=== PATIENT | female | born 1985 | race Hispanic/Latino ===

== ENCOUNTER 2018-10-16 19:51 | Emergency (ER) | payer OTHER, SELFPAY ==
--- OUTSIDE RECORDS SUMMARY | 2018-10-16 19:53 | XMS REPORT ---
:1985 [facility] [address] [place] [address] [address] [place] [address] Care Team Providers Name Role Phone Unavailable Unavailable Unavailable Problems This patient has no known problems. Allergies, Adverse Reactions, Alerts This patient has no known allergies or adverse reactions. Medications This patient has no known medications.
[2018-10-16] MEDS ORDERED: NA CHLORIDE 0.9% 1,000 ML ONE (20:28)
[2018-10-16] MEDS ORDERED: MORPHINE 4 MG/ML SYR ONE (20:28)
[2018-10-16] MEDS ORDERED: ONDANSETRON 4 MG/2 ML VIAL ONE (20:28)
[2018-10-16 20:32] LABS: Absolute Lymphocytes (CBC) 1.3 K/uL (0.7-4.9); Absolute Monocytes 0.7 K/uL (0.1-1.3); Absolute Neutrophil 7.6 K/uL (1.8-8.0); Basophils % 0.7 % (0-1.3); Eosinophils % 1.2 % (0-4.4); Hematocrit 37.3 % (36.0-45.0); Lymphocytes % 13.3 % (15.3-44.8); MPV 10.7 fL (7.6-11.3); Monocytes % 7.6 % (3.3-12.3); RBC Red Blood Cell Count 4.23 M/uL (3.86-4.86)
[2018-10-16 20:46] LABS: Potassium 3.8 mmol/L (3.5-5.1)
[2018-10-16 21:05] LABS: Urine Blood NEGATIVE (NEG); Urine Glucose NEGATIVE (NEG); Urine Protein TRACE (NEG); Urine Specific Gravity >1.030 (1.005-1.030)
[2018-10-16 21:17] LABS: Urine Bacteria <20 /HPF (<20); Urine Culture Reflex Order REFLEXED; Urine Mucus LIGHT /HPF (NONE SEEN); Urine RBC NONE SEEN /HPF (NONE SEEN)
[2018-10-16] MEDS ORDERED: KETOROLAC 30 MG/ML INJ ONE (21:25)
--- NOTE | 2018-10-16 22:14 | RAD REPORT ---
EXAM DESCRIPTION: CT - Stone Protocol - 10/16/2018 9:56 pm CLINICAL HISTORY: Abdominal pain. Hematuria COMPARISON: None. TECHNIQUE: Computed axial tomography of the abdomen pelvis was obtained without oral or IV contrast. Lack of IV and oral contrast limits evaluation of solid organs, bowel, and vessels. Coronal reformat edmund images were obtained and reviewed. All CT scans are performed using dose optimization technique as appropriate and may include automated exposure control or mA/KV adjustment according to patient size. FINDINGS: A renal calculus is not seen. An ureteral calculus is not noted. A bladder calculus is not present. The liver, spleen, pancreas and adrenals appear grossly normal There is no evidence of diverticulitis. The appendix appears normal Tubal occlusion coils are in place. Small umbilical hernia. Moderate amount of stool is present within the colon IMPRESSION: Negative for a genitourinary calculus
--- NOTE | 2018-10-16 22:26 | EDPHYS ---
Physician Documentation [facility] Name: Janeth Hassan Age: 32 yrs Sex: Female : 1985 Arrival Date: 10/16/2018 Time: 19:54 Bed 14 Private MD: ED Physician Oh Jensen HPI: 10/16 21:00 This 32 yrs old Female presents to ER via Ambulatory with complaints of Back kb Pain, Vomiting. 21:00 The patient complains of pain in the left flank. The pain does not radiate. Onset: The kb symptoms/episode began/occurred 3 day(s) ago. Modifying factors: The symptoms are alleviated by nothing. the symptoms are aggravated by palpation/percussion. Associated signs and symptoms: Pertinent positives: dysuria, urinary frequency, hematuria, nausea, vomiting, Pertinent negatives: diarrhea, dizziness, fever, headache, pain radiating to the lower extremities. Severity of pain: At its worst the pain was moderate in the emergency department the pain is unchanged. The patient has not experienced similar symptoms in the past. The patient has been recently seen by a physician: the ER physician, out of Town. Pt has had left flank pain, hematuria, dysuria, frequency with small amounts for 3 days. Symptoms have gotten progressively worse so she went to [place] ER today. Urine was tested and pt was started on Bactrim for UTI. States she took the bactrim, went home and went to sleep. Woke up with flank pain, nausea and vomiting. Historical: - Allergies: 20:04 No Known Allergies; jd3 - Home Meds: 20:04 None [Active]; jd3 - PMHx: 20:04 None; jd3 - PSHx: 20:04 None; jd3 - Immunization history:: Adult Immunizations up to date. - Social history:: Smoking status: Patient/guardian denies using tobacco. - Ebola Screening: : Patient negative for fever greater than or equal to 101.5 degrees Fahrenheit, and additional compatible Ebola Virus Disease symptoms. ROS: 20:59 Constitutional: Negative for fever, chills, and weight loss, ENT: Negative for injury, kb pain, and discharge, Neck: Negative for injury, pain, and swelling, Cardiovascular: Negative for chest pain, palpitations, and edema, Respiratory: Negative for shortness of breath, cough, wheezing, and pleuritic chest pain, MS/Extremity: Negative for injury and deformity, Skin: Negative for injury, rash, and discoloration, Neuro: Negative for headache, weakness, numbness, tingling, and seizure. 20:59 Abdomen/GI: Positive for nausea and vomiting. 20:59 Back: Positive for flank pain, on the left. 20:59 : Positive for urinary symptoms, flank pain, urinary frequency, small amounts, burning with urination. Exam: 20:59 Constitutional: This is a well developed, well nourished patient who is awake, alert, kb and in no acute distress. Head/Face: Normocephalic, atraumatic. ENT: Nares patent. No nasal discharge, no septal abnormalities noted. Tympanic membranes are normal and external auditory canals are clear. Oropharynx with no redness, swelling, or masses, exudates, or evidence of obstruction, uvula midline. Mucous membranes moist. Neck: Trachea midline, no thyromegaly or masses palpated, and no cervical lymphadenopathy. Supple, full range of motion without nuchal rigidity, or vertebral point tenderness. No Meningismus. Chest/axilla: Normal chest wall appearance and motion. Nontender with no deformity. No lesions are appreciated. Cardiovascular: Regular rate and rhythm with a normal S1 and S2. No gallops, murmurs, or rubs. Normal PMI, no JVD. No pulse deficits. Respiratory: Lungs have equal breath sounds bilaterally, clear to auscultation and percussion. No rales, rhonchi or wheezes noted. No increased work of breathing, no retractions or nasal flaring. Abdomen/GI: Soft, non-tender, with normal bowel sounds. No distension or tympany. No guarding or rebound. No evidence of tenderness throughout. Skin: Warm, dry with normal turgor. Normal color with no rashes, no lesions, and no evidence of cellulitis. MS/ Extremity: Pulses equal, no cyanosis. Neurovascular intact. Full, normal range of motion. Neuro: Awake and alert, GCS 15, oriented to person, place, time, and situation. Cranial nerves II-XII grossly intact. Motor strength 5/5 in all extremities. Sensory grossly intact. Cerebellar exam normal. Normal gait. 20:59 Back: CVA tenderness, that is moderate, is noted on the left. Vital Signs: 20:05 BP 127 / 84; Pulse 72; Resp 18 S; Temp 98.1(O); Pulse Ox 100% on R/A; Weight 66.68 kg jd3 (R); Height 4 ft. 8 in. (142.24 cm) (R); Pain 10/10; 21:10 BP 126 / 78; Pulse 70; Resp 18; Pulse Ox 100% ; ea 22:45 BP 124 / 80; Pulse 80; Resp 18; Pulse Ox 98% ; ea 20:05 Body Mass Index 32.96 (66.68 kg, 142.24 cm) jd3 MDM: 20:03 Patient medically screened. kb 20:59 Data reviewed: vital signs, nurses notes. Data interpreted: Pulse oximetry: on room air kb is 100 %. Interpretation: normal. 22:20 Counseling: I had a detailed discussion with the patient and/or guardian regarding: the kb historical points, exam findings, and any diagnostic results supporting the discharge/admit diagnosis, lab results, radiology results, the need for outpatient follow up, a family practitioner, to return to the emergency department if symptoms worsen or persist or if there are any questions or concerns that arise at home. 10/16 20:08 Order name: CBC with Diff kb 10/16 20:08 Order name: Basic Metabolic Panel; Complete Time: 20:58 kb 10/16 20:08 Order name: Urine Microscopic Only; Complete Time: 21:18 kb 10/16 20:09 Order name: CBC with Automated Diff; Complete Time: 20:58 EDMS 10/16 20:47 Order name: Urine Dipstick--Ancillary (enter results) ar5 10/16 20:47 Order name: Urine --Ancillary (enter results) ar 10/16 20:08 Order name: IV Start; Complete Time: 20:36 kb 10/16 21:19 Order name: Urine Culture EDIL 10/16 21:40 Order name: CT Stone Protocol; Complete Time: 22:15 kb 10/16 20:08 Order name: Urine Test (obtain specimen); Complete Time: 20:57 kb 10/16 20:08 Order name: Urine Dipstick-Ancillary (obtain specimen); Complete Time: 20:57 kb Administered Medications: 20:30 Drug: Zofran 4 mg Route: IVP; Site: right antecubital; ea 21:19 Follow up: Response: No adverse reaction; Pain is decreased ea 20:35 Drug: morphine 4 mg Route: IVP; Site: right antecubital; ea 21:00 Follow up: Response: No adverse reaction; Pain is decreased ea 20:36 Drug: NS 0.9% 1000 ml Route: IV; Rate: 1000 ml; Site: right antecubital; ea 21:15 Follow up: Response: No adverse reaction; IV Status: Completed infusion; IV Intake: ea 1000ml 21:19 Drug: TORadol 30 mg Route: IVP; Site: right antecubital; ea 21:45 Follow up: Response: No adverse reaction; Pain is decreased ea 22:47 Drug: Rocephin 1 grams Route: IV; Rate: calculated rate; Site: right antecubital; ea 22:58 Follow up: Response: No adverse reaction; IV Status: Completed infusion ea Disposition: 10/17 07:40 Co-signature as Attending Physician, Oh Jensen MD I agree with the assessment and regina plan of care. Disposition: 10/16/18 22:26 Discharged to Home. Impression: Urinary tract infection, site not specified. - Condition is Stable. - Discharge Instructions: Urinary Tract Infection, Adult, [id number]. - Prescriptions for Zofran 4 mg Oral Tablet - take 1 tablet by ORAL route every 6 hours As needed; 20 tablet. Diclofenac Sodium 75 mg Oral Tablet, Delayed Release (E.C.) - take 1 tablet by ORAL route 2 times per day As needed; 30 tablet. - Medication Reconciliation Form, Thank You Letter, Antibiotic Education, Prescription Opioid Use form. - Follow up: Private Physician; When: 2 - 3 days; Reason: Recheck today's complaints, Continuance of care, Re-evaluation by your physician. Follow up: Emergency Department; When: As needed; Reason: Worsening of condition. - Notes: Continue Bactrim previously prescribed Signatures: Dispatcher [employer] EDMS Dolores Erazo, TEMI SHIPMAN-Oh Howell MD MD cha Antunez, Elena, RN Radhames Emanuel ea, RN RN jd3 Corrections: (The following items were deleted from the chart) 10/16 22:58 22:26 10/16/2018 22:26 Discharged to Home. Impression: Urinary tract infection, site ea not specified. Condition is Stable. Discharge Instructions: Urinary Tract Infection, Adult, [id number]. Prescriptions for Zofran 4 mg Oral Tablet - take 1 tablet by ORAL route every 6 hours As needed; 20 tablet, Diclofenac Sodium 75 mg Oral Tablet, Delayed Release (E.C.) - take 1 tablet by ORAL route 2 times per day As needed; 30 tablet. and Forms are Medication Reconciliation Form, Thank You Letter, Antibiotic Education, Prescription Opioid Use. Follow up: Private Physician; When: 2 - 3 days; Reason: Recheck today's complaints, Continuance of care, Re-evaluation by your physician. Follow up: Emergency Department; When: As needed; Reason: Worsening of condition. kb
--- NOTE | 2018-10-16 22:26 | ER ---
Nurse's Notes [facility] Name: Janeth Hassan Age: 32 yrs Sex: Female : 1985 Arrival Date: 10/16/2018 Time: 19:54 Bed 14 Private MD: Diagnosis: Urinary tract infection, site not specified Presentation: 10/16 20:02 Presenting complaint: Patient states: "I went to [facility] just a little earlier with jd3 lower back pain, throwing up, and blood in my urine. All they did was do a urine sample and give me medication that only lasted for about an hour. I was told all it was is a kidney infection. my family has a history of kidney stones.". Transition of care: patient was not received from another setting of care. Onset of symptoms was October 16, 2018. Risk Assessment: Do you want to hurt yourself or someone else? Patient reports no desire to harm self or others. Initial Sepsis Screen: Does the patient meet any 2 criteria? No. Patient's initial sepsis screen is negative. Does the patient have a suspected source of infection? No. Patient's initial sepsis screen is negative. Care prior to arrival: None. 20:02 Method Of Arrival: Ambulatory jd3 20:02 Acuity: ARAMIS 3 jd3 Historical: - Allergies: 20:04 No Known Allergies; jd3 - Home Meds: 20:04 None [Active]; jd3 - PMHx: 20:04 None; jd3 - PSHx: 20:04 None; jd3 - Immunization history:: Adult Immunizations up to date. - Social history:: Smoking status: Patient/guardian denies using tobacco. - Ebola Screening: : Patient negative for fever greater than or equal to 101.5 degrees Fahrenheit, and additional compatible Ebola Virus Disease symptoms. Screenin:36 Abuse screen: Denies threats or abuse. Nutritional screening: No deficits noted. ea Tuberculosis screening: No symptoms or risk factors identified. Fall Risk IV access (20 points). Assessment: 20:05 General: Appears uncomfortable, Behavior is appropriate for age. Pain: Complains of ea pain in left flank Quality of pain is described as aching. Neuro: Level of Consciousness is awake, alert, obeys commands, Oriented to person, place, time, situation. Cardiovascular: Patient's skin is warm and dry. Respiratory: Airway is patent Respiratory effort is even, unlabored, Respiratory pattern is regular, symmetrical. GI: Abdomen is non-distended, Bowel sounds present X 4 quads. : Reports flank pain. Derm: Skin is pink, warm \\T\\ dry. 21:40 Reassessment: Patient and/or family updated on plan of care and expected duration. Pain ea level reassessed. Patient is alert, oriented x 3, equal unlabored respirations, skin warm/dry/pink. Pt reports pain is decreased. 22:52 Reassessment: Patient and/or family updated on plan of care and expected duration. Pain ea level reassessed. Patient is alert, oriented x 3, equal unlabored respirations, skin warm/dry/pink. Discharge instructions given to patient, verbalized the understanding of instruction. Patient states symptoms have improved. Vital Signs: 20:05 BP 127 / 84; Pulse 72; Resp 18 S; Temp 98.1(O); Pulse Ox 100% on R/A; Weight 66.68 kg jd3 (R); Height 4 ft. 8 in. (142.24 cm) (R); Pain 10/10; 21:10 BP 126 / 78; Pulse 70; Resp 18; Pulse Ox 100% ; ea 22:45 BP 124 / 80; Pulse 80; Resp 18; Pulse Ox 98% ; ea 20:05 Body Mass Index 32.96 (66.68 kg, 142.24 cm) jd3 ED Course: 19:54 Patient arrived in ED. es 20:02 Emma Hill, CHRISTINE is Primary Nurse. ea 20:03 Dolores Erazo FNP-C is PHCP. kb 20:03 Oh Jensen MD is Attending Physician. kb 20:04 Triage completed. jd3 20:05 Arm band placed on. jd3 20:10 Patient has correct armband on for positive identification. Bed in low position. Call ea light in reach. Side rails up X2. 20:15 Inserted saline lock: 20 gauge in right antecubital area, using aseptic technique. ea Blood collected. 21:56 CT Stone Protocol In Process Unspecified. EDMS 21:57 CT completed. Patient tolerated procedure well. Patient moved back from CT. nj 22:53 No provider procedures requiring assistance completed. IV discontinued, intact, ea bleeding controlled, No redness/swelling at site. Pressure dressing applied. Administered Medications: 20:30 Drug: Zofran 4 mg Route: IVP; Site: right antecubital; ea 21:19 Follow up: Response: No adverse reaction; Pain is decreased ea 20:35 Drug: morphine 4 mg Route: IVP; Site: right antecubital; ea 21:00 Follow up: Response: No adverse reaction; Pain is decreased ea 20:36 Drug: NS 0.9% 1000 ml Route: IV; Rate: 1000 ml; Site: right antecubital; ea 21:15 Follow up: Response: No adverse reaction; IV Status: Completed infusion; IV Intake: ea 1000ml 21:19 Drug: TORadol 30 mg Route: IVP; Site: right antecubital; ea 21:45 Follow up: Response: No adverse reaction; Pain is decreased ea 22:47 Drug: Rocephin 1 grams Route: IV; Rate: calculated rate; Site: right antecubital; ea 22:58 Follow up: Response: No adverse reaction; IV Status: Completed infusion ea Intake: 21:15 IV: 1000ml; Total: 1000ml. ea Outcome: 22:26 Discharge ordered by . michael 22:54 Discharged to home ambulatory, with significant other. ea 22:54 Condition: improved 22:54 Discharge instructions given to patient, Instructed on discharge instructions, follow up and referral plans. medication usage, Demonstrated understanding of instructions, follow-up care, medications, Prescriptions given X 2. 22:58 Patient left the ED. ea Signatures: Dispatcher [employer] Dolores Moreno, RAMONITA-C AUTOMOTIVE ACCESSORY INSTALLER-Alison Henry Nathan nj Antunez, Elena, RN RN ea Davies, Jonathon, RN RN jd3 Corrections: (The following items were deleted from the chart) 22:55 21:04 BP 182 / 95; Pulse 97bpm; Resp 18bpm; Pulse Ox 99%; ea chelsea
[2018-10-16] MEDS ORDERED: CEFTRIAXONE/SWI 1gm 1 GM/10 ML SYR ONE (22:29)
[2018-10-16 23:27] VITALS: TEMP 98.1
[2018-10-16 23:29] VITALS: BP 124/80; O2SAT 98
== END 2018-10-16 22:58 | disposition home or self-care (01) ==
LOC: ER 19:51
DX: N39.0 Urinary tract infection, site not specified (principal)
CPT/HCPCS: 36415; 74176; 76377; 80048; 81003; 81015; 81025; 85025; 87086; 87088; 96361; 96374; 96375; 99284; J0696; J2405; J7030

== ENCOUNTER 2019-01-07 17:33 | Emergency (ER) | payer SELFPAY ==
--- OUTSIDE RECORDS SUMMARY | 2019-01-07 17:35 | XMS REPORT ---
:1985 [facility] [address] [place] [address] Care Team Providers Name Role Phone Unavailable Unavailable Unavailable Problems This patient has no known problems. Allergies, Adverse Reactions, Alerts This patient has no known allergies or adverse reactions. Medications This patient has no known medications.
--- NOTE | 2019-01-07 19:56 | RAD REPORT ---
EXAM DESCRIPTION: CT - Head Brain Wo Cont - 01/07/2019 7:47 pm CLINICAL HISTORY: acute jacobs Headache, fever, vomiting COMPARISON: CTFACIAL BONES W MPR dated 07/05/2015; HEAD BRAIN W O CONTRAST dated 03/06/2012 TECHNIQUE: All CT scans are performed using dose optimization technique as appropriate and may inclu de automated exposure control or mA/KV adjustment according to patient size. FINDINGS: No intracranial hemorrhage, hydrocephalus or extra-axial fluid collection.No areas of brai n edema or evidence of midline shift. The paranasal sinuses and mastoids are clear. The calvarium is intact. IMPRESSION: No acute intracranial abnormality.
[2019-01-07 20:08] LABS: Urine Amorphous Sediment 3+ /HPF (NONE SEEN); Urine Bacteria 20-50 /HPF (<20); Urine Culture Reflex Order REFLEXED; Urine Mucus 3+ /HPF (NONE SEEN); Urine RBC <5 /HPF (NONE SEEN)
[2019-01-07 20:11] LABS: Absolute Lymphocytes (CBC) 0.5 K/uL (0.7-4.9); Absolute Monocytes 0.1 K/uL (0.1-1.3); Absolute Neutrophil 10.3 K/uL (1.8-8.0); Basophils % 1.9 % (0-1.3); Eosinophils % 0.2 % (0-4.4); Hematocrit 41.1 % (36.0-45.0); Lymphocytes % 4.6 % (15.3-44.8); MPV 10.6 fL (7.6-11.3); Monocytes % 1.3 % (3.3-12.3); RBC Red Blood Cell Count 4.68 M/uL (3.86-4.86)
[2019-01-07] MEDS ORDERED: METOCLOPRAMIDE 10 MG/2mL INJ ONE (20:11)
[2019-01-07] MEDS ORDERED: KETOROLAC 30 MG/ML INJ ONE (20:12)
[2019-01-07] MEDS ORDERED: DIPHENHYDRAMINE 50 MG/ML VIAL ONE (20:12)
[2019-01-07] MEDS ORDERED: NA CHLORIDE 0.9% 1,000 ML ONE (20:12)
[2019-01-07 20:17] LABS: Urine Blood TRACE (NEG); Urine Glucose NEGATIVE (NEG); Urine Protein TRACE (NEG)
[2019-01-07 20:48] LABS: ALT/SGPT 20 U/L (12-78); AST/SGOT 14 U/L (15-37); Alkaline Phosphatase 92 U/L (45-117); BUN Blood Urea Nitrogen 14 mg/dL (7-18); Bicarbonate 25 mmol/L (21-32); Bilirubin Direct < 0.1 mg/dL (0-0.2); Bilirubin Total 0.2 mg/dL (0.2-1.0); Glucose Level 103 mg/dL (74-106); Lipase 80 U/L (73-393); Potassium 4.2 mmol/L (3.5-5.1); Protein, Total 8.1 g/dL (6.4-8.2); Sodium Level 140 mmol/L (136-145)
--- NOTE | 2019-01-07 21:05 | ER ---
Nurse's Notes [facility] Name: Janeth Hassan Age: 33 yrs Sex: Female : 1985 Arrival Date: 01/07/2019 Time: 17:35 Bed 30 Private MD: Unknown, Unknown Diagnosis: Headache;Vomiting Presentation: 01/07 17:39 Presenting complaint: Patient states: vomiting, migraine, fever Tmax 101, chills sv started this morning. Transition of care: patient was not received from another setting of care. Onset of symptoms was January 07, 2019. Care prior to arrival: None. 17:39 Method Of Arrival: Ambulatory sv 17:39 Acuity: ARAMIS 3 sv 18:32 Risk Assessment: Do you want to hurt yourself or someone else?. ca1 18:32 Initial Sepsis Screen: Does the patient meet any 2 criteria? Does the patient have a ca1 suspected source of infection? No. Patient's initial sepsis screen is negative. Triage Assessment: 17:42 Headache History: The patient has had previous headaches and this one is different than sv previous episodes, and this one is more severe than previous episodes. General: Appears in no apparent distress. uncomfortable, Behavior is calm, cooperative, appropriate for age. Pain: Complains of pain in face and scalp Also complains of photophobia. Neuro: Level of Consciousness is awake, alert, obeys commands, Oriented to person, place, time, situation, Gait is steady. Respiratory: Respiratory effort is even, unlabored, Respiratory pattern is regular, symmetrical. ACTIVE DIRECTORY ARCHITECT: 19:16 LMP 01/04/2019 ca1 Historical: - Allergies: 17:41 No Known Allergies; sv - PMHx: 17:41 Anxiety; Depression; sv - PSHx: 17:41 None; sv - Immunization history:: Flu vaccine is not up to date. - Social history:: Smoking status: Patient/guardian denies using tobacco. - Ebola Screening: : No symptoms or risks identified at this time. Screenin:32 Abuse screen: Denies threats or abuse. Denies injuries from another. Nutritional ca1 screening: No deficits noted. Tuberculosis screening: No symptoms or risk factors identified. Fall Risk None identified. Assessment: 18:32 General: Appears in no apparent distress. comfortable, Behavior is calm, cooperative, ca1 appropriate for age. Pain: Complains of pain in scalp and face Pain does not radiate. Pain currently is 10 out of 10 on a pain scale. Pain began today Also complains of nausea. Neuro: Level of Consciousness is awake, alert, obeys commands, Oriented to person, place, time, situation. Cardiovascular: Heart tones S1 S2 present Capillary refill < 3 seconds Patient's skin is warm and dry. Respiratory: Airway is patent Respiratory effort is even, unlabored, Respiratory pattern is regular, symmetrical, Breath sounds are clear bilaterally. GI: Abdomen is flat, non-distended, Bowel sounds present X 4 quads. Abd is soft and non tender X 4 quads. Reports vomiting. : No deficits noted. No signs and/or symptoms were reported regarding the genitourinary system. EENT: No deficits noted. No signs and/or symptoms were reported regarding the EENT system. Derm: Skin is intact, is healthy with good turgor, Skin is pink, warm \T\ dry. Musculoskeletal: Circulation, motion, and sensation intact. Capillary refill < 3 seconds. 19:14 Reassessment: Patient appears in no apparent distress at this time. Patient is alert, ca1 oriented x 3, equal unlabored respirations, skin warm/dry/pink. Dr. Estrada at bedside. 20:13 Reassessment: Patient appears in no apparent distress at this time. Patient and/or ca1 family updated on plan of care and expected duration. Pain level reassessed. Patient is alert, oriented x 3, equal unlabored respirations, skin warm/dry/pink. 20:46 Reassessment: Patient appears in no apparent distress at this time. Patient is alert, ca1 oriented x 3, equal unlabored respirations, skin warm/dry/pink. Vital Signs: 17:41 BP 120 / 90; Pulse 80; Resp 18; Temp 97.5; Pulse Ox 97% ; Weight 69.85 kg; Height 4 ft. sv 9 in. (144.78 cm); Pain 10/10; 18:32 BP 100 / 70; Pulse 91; Resp 19; Pulse Ox 100% on R/A; ca1 20:13 BP 114 / 83; Pulse 84; Resp 19; Pulse Ox 100% on R/A; ca1 20:46 BP 106 / 72; Pulse 86; Resp 19; Pulse Ox 100% ; ca1 17:41 Body Mass Index 33.32 (69.85 kg, 144.78 cm) sv ED Course: 17:35 Patient arrived in ED. mr 17:35 Unknown, Unknown is Private Physician. mr 17:40 Triage completed. sv 17:42 Arm band placed on. sv 18:32 Patient has correct armband on for positive identification. Placed in gown. Bed in low ca1 position. Call light in reach. Side rails up X 1. Pulse ox on. NIBP on. Warm blanket given. 18:32 No provider procedures requiring assistance completed. ca1 18:35 Willi Estrada MD is Attending Physician. gs 19:10 Viridiana Black, CHRISTINE is Primary Nurse. ca1 19:[address] via wheelchair. nj 19:47 CT Head Brain wo Cont In Process Unspecified. EDMS 19:47 CT completed. Patient tolerated procedure well. Patient moved back from CT. nj 19:59 Initial lab(s) drawn, by me, sent to lab. Inserted saline lock: 20 gauge in left lt1 antecubital area, using aseptic technique. 21:24 IV discontinued, intact, bleeding controlled, No redness/swelling at site. Pressure ca1 dressing applied. Administered Medications: 20:00 Drug: NS 0.9% 1000 ml Route: IV; Rate: 1 bolus; Site: left antecubital; ca1 21:00 Follow up: Response: No adverse reaction; IV Status: Completed infusion ca1 21:00 Follow up: Response: No adverse reaction; IV Status: Completed infusion ca1 20:01 Drug: Reglan 10 mg Route: IVP; Site: left antecubital; ca1 21:00 Follow up: Response: No adverse reaction; Nausea is decreased ca1 20:03 Drug: Benadryl 25 mg Route: IVP; Site: left antecubital; ca1 21:00 Follow up: Response: No adverse reaction; Pain is decreased ca1 20:05 Drug: TORadol 15 mg Route: IVP; Site: left antecubital; ca1 21:00 Follow up: Response: No adverse reaction; Pain is decreased ca1 Outcome: 21:04 Discharge ordered by . gs 21:24 Discharged to home ambulatory, with family. ca1 21:24 Condition: stable 21:24 Discharge instructions given to patient, Instructed on discharge instructions, follow up and referral plans. medication usage, Demonstrated understanding of instructions, follow-up care, medications, Prescriptions given X 2. 21:26 Patient left the ED. ca1 Signatures: Dispatcher [employer] Lia Rm RN RN sv Julio, Adela mr Chris, Willi Gusman MD MD Viridiana Black RN RN ca1 Ileana, Eden lt1 Corrections: (The following items were deleted from the chart) 17:43 17:41 Pulse 80bpm; Resp 18bpm; Pulse Ox 97%; Temp 97.5F; 69.85 kg; Height 4 ft. 9 in.; sv BMI: 33.3; Pain 10/10; sv 21:24 21:23 Risk Assessment: Do you want to hurt yourself or someone else? ca1 ca1
--- NOTE | 2019-01-07 21:05 | EDPHYS ---
Physician Documentation [facility] Name: Janeth Hassan Age: 33 yrs Sex: Female : 1985 Arrival Date: 01/07/2019 Time: 17:35 Bed 30 Private MD: Unknown, Unknown ED Physician Willi Estrada HPI: 01/07 20:59 This 33 yrs old Female presents to ER via Ambulatory with complaints of gs HEADACHE. 20:59 The patient complains of pain to the forehead. The patient describes the headache as gs throbbing. Associated signs and symptoms: Pertinent negatives:. 21:00 Onset: The symptoms/episode began/occurred this morning. Severity of symptoms: At its gs worst the pain was moderate, in the emergency department the pain is unchanged. Headache History: The patient has had previous headaches and this one is similar to previous episodes. The symptoms are alleviated by nothing. the symptoms are aggravated by nothing. The patient has experienced similar episodes in the past, multiple times, but today's symptoms are worse, more painful. SAYS HAD SOME FEVER THIS AM NO ANTIPYRETUCS. 21:23 LAST FEVER WAS LAST NIGHT NO ANTIPYRETICS TODAY NO CHILLS FEVER TODAY. 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 - Social history:: Smoking status: Patient/guardian denies using tobacco. - Ebola Screening: : No symptoms or risks identified at this time. ROS: 21:00 All other systems are negative. gs Exam: 21:00 Head/Face: Normocephalic, atraumatic. Eyes: Pupils equal round and reactive to light, gs extra-ocular motions intact. Lids and lashes normal. Conjunctiva and sclera are non-icteric and not injected. Cornea within normal limits. Periorbital areas with no swelling, redness, or edema. ENT: Nares patent. No nasal discharge, no septal abnormalities noted. Tympanic membranes are normal and external auditory canals are clear. Oropharynx with no redness, swelling, or masses, exudates, or evidence of obstruction, uvula midline. Mucous membranes moist. Neck: Trachea midline, no thyromegaly or masses palpated, and no cervical lymphadenopathy. Supple, full range of motion without nuchal rigidity, or vertebral point tenderness. No Meningismus. Chest/axilla: Normal chest wall appearance and motion. Nontender with no deformity. No lesions are appreciated. Cardiovascular: Regular rate and rhythm with a normal S1 and S2. No gallops, murmurs, or rubs. Normal PMI, no JVD. No pulse deficits. Respiratory: Lungs have equal breath sounds bilaterally, clear to auscultation and percussion. No rales, rhonchi or wheezes noted. No increased work of breathing, no retractions or nasal flaring. Abdomen/GI: Soft, non-tender, with normal bowel sounds. No distension or tympany. No guarding or rebound. No evidence of tenderness throughout. Back: No spinal tenderness. No costovertebral tenderness. Full range of motion. Skin: Warm, dry with normal turgor. Normal color with no rashes, no lesions, and no evidence of cellulitis. MS/ Extremity: Pulses equal, no cyanosis. Neurovascular intact. Full, normal range of motion. Neuro: Awake and alert, GCS 15, oriented to person, place, time, and situation. Cranial nerves II-XII grossly intact. Motor strength 5/5 in all extremities. Sensory grossly intact. Cerebellar exam normal. Normal gait. 21:00 Constitutional: The patient appears alert, awake. 21:00 Constitutional: The patient appears uncomfortable. Vital Signs: 17:41 BP 120 / 90; Pulse 80; Resp 18; Temp 97.5; Pulse Ox 97% ; Weight 69.85 kg; Height 4 ft. sv 9 in. (144.78 cm); Pain 10/10; 18:32 BP 100 / 70; Pulse 91; Resp 19; Pulse Ox 100% on R/A; ca1 20:13 BP 114 / 83; Pulse 84; Resp 19; Pulse Ox 100% on R/A; ca1 20:46 BP 106 / 72; Pulse 86; Resp 19; Pulse Ox 100% ; ca1 17:41 Body Mass Index 33.32 (69.85 kg, 144.78 cm) sv MDM: 19:31 Patient medically screened. gs 21:00 Differential diagnosis: migraine, subarachnoid bleed, vasomotor headache. Data gs reviewed: vital signs, nurses notes, lab test result(s), radiologic studies. Response to treatment: the patient's symptoms have resolved after treatment, the patient's condition has returned to base line. ED course: CT DONE PT WASN'T CLEAR INITIALLY ABOUT ONSET AND SIMILARITIES TO PREVIOUS HEADACHES. 01/07 19:35 Order name: Urine Microscopic Only; Complete Time: 20:41 01/07 19:35 Order name: Basic Metabolic Panel; Complete Time: 21:25 01/07 19:35 Order name: CBC with Diff; Complete Time: 21:25 01/07 19:35 Order name: Hepatic Function; Complete Time: 21:25 01/07 19:35 Order name: Lipase; Complete Time: 21:25 01/07 19:44 Order name: Urine Dipstick--Ancillary (enter results); Complete Time: 20:41 [facility] 01/07 19:36 Order name: CT Head Brain wo Cont; Complete Time: 19:58 01/07 19:44 Order name: Urine --Ancillary (enter results); Complete Time: 20:41 [facility] 01/07 20:09 Order name: Urine Culture [facility] 01/07 21:24 Order name: CBC Smear Scan; Complete Time: 21:25 [facility] 01/07 19:35 Order name: Urine Test (obtain specimen); Complete Time: 19:55 01/07 19:35 Order name: Urine Dipstick-Ancillary (obtain specimen); Complete Time: 19:55 01/07 19:35 Order name: IV Saline Lock; Complete Time: 19:54 01/07 19:35 Order name: Labs collected and sent; Complete Time: 19:54 gs Administered Medications: 20:00 Drug: NS 0.9% 1000 ml Route: IV; Rate: 1 bolus; Site: left antecubital; ca1 21:00 Follow up: Response: No adverse reaction; IV Status: Completed infusion ca1 21:00 Follow up: Response: No adverse reaction; IV Status: Completed infusion ca1 20:01 Drug: Reglan 10 mg Route: IVP; Site: left antecubital; ca1 21:00 Follow up: Response: No adverse reaction; Nausea is decreased ca1 20:03 Drug: Benadryl 25 mg Route: IVP; Site: left antecubital; ca1 21:00 Follow up: Response: No adverse reaction; Pain is decreased ca1 20:05 Drug: TORadol 15 mg Route: IVP; Site: left antecubital; ca1 21:00 Follow up: Response: No adverse reaction; Pain is decreased ca1 Disposition: 01/07/19 21:04 Discharged to Home. Impression: Headache, Vomiting. - Condition is Stable. - Discharge Instructions: General Headache Without Cause, Nausea and Vomiting, Adult. - Prescriptions for Fiorinal 50- 325-40 mg Oral Capsule - take 1 capsule by ORAL route every 6 hours As needed - not to exceed 6 capsules per day; 20 capsule. Zofran 4 mg Oral Tablet - take 1 tablet by ORAL route every 12 hours As needed; 10 tablet. - Medication Reconciliation Form, Thank You Letter, Antibiotic Education, Prescription Opioid Use form. - Follow up: Private Physician; When: 2 - 3 days; Reason: Re-evaluation by your physician. Signatures: Dispatcher [employer] Lia Rm RN RN Willi Estrada MD MD Acob, CHRISTINE Kemp RN ca1 Corrections: (The following items were deleted from the chart) 21:02 20:59 Onset: The symptoms/episode began[facility]occurred [facility] 21:26 21:04 01/07/2019 21:04 Discharged to Home. Impression: Headache; Vomiting. Condition is ca1 Stable. Forms are Medication Reconciliation Form, Thank You Letter, Antibiotic Education, Prescription Opioid Use. Follow up: Private Physician; When: 2 - 3 days; Reason: Re-evaluation by your physician.
[2019-01-07 21:23] LABS: Blood Morphology Comment NOT SEEN (NOT SEEN); Platelet Estimate ADEQ; Urine White Blood Cell Casts OK
[2019-01-07 21:36] VITALS: TEMP 97.5
[2019-01-07 21:37] VITALS: O2SAT 100
[2019-01-07 21:40] VITALS: BP 106/72
== END 2019-01-07 21:26 | disposition home or self-care (01) ==
LOC: ER 17:33
DX: R51 Headache (principal); R11.10 Vomiting, unspecified; F41.9 Anxiety disorder, unspecified; F32.9 Major depressive disorder, single episode, unspecified
CPT/HCPCS: 36415; 70450; 80048; 80076; 81003; 81015; 81025; 83690; 85025; 87077; 87086; 87088; 87186; 96361; 96374; 96375; 99284; J2765; J7030

== ENCOUNTER 2019-03-24 03:13 | Emergency (ER) | payer SELFPAY ==
--- OUTSIDE RECORDS SUMMARY | 2019-03-24 03:16 | XMS REPORT ---
:1985 [facility] Address [address] [place] [address] Care Team Providers Name Role Phone Unavailable Unavailable Unavailable Problems This patient has no known problems. Allergies, Adverse Reactions, Alerts This patient has no known allergies or adverse reactions. Medications This patient has no known medications.
[2019-03-24] MEDS ORDERED: ACETAMINOPHEN 325 MG TABLET ONE (03:51)
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
[2019-03-24 04:38] VITALS: BP 113/98; TEMP 98.4; O2SAT 99
== END 2019-03-24 04:24 | disposition left against medical advice (07) ==
LOC: ER 03:13
DX: S09.90XA Unspecified injury of head, initial encounter (principal); S80.01XA Contusion of right knee, initial encounter; M54.2 Cervicalgia; Y04.8XXA Assault by other bodily force, initial encounter; Y93.9 Activity, unspecified; Y92.89 Other specified places as the place of occurrence of the external cause
CPT/HCPCS: 99282

== ENCOUNTER 2022-06-24 23:28 | Emergency (ER) | payer SELFPAY ==
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
[2022-06-25 01:02] LABS: Absolute Lymphocytes (CBC) 2.3 K/uL (0.7-4.9); Hematocrit 40.6 % (36.0-45.0); Lymphocytes % 25.9 % (15.3-44.8); MPV 10.2 fL (7.6-11.3); RBC Red Blood Cell Count 4.46 M/uL (3.86-4.86)
[2022-06-25 01:13] LABS: Albumin 3.8 g/dL (3.4-5.0); Bilirubin Total 0.2 mg/dL (0.2-1.0); Potassium 3.9 mmol/L (3.5-5.1); Protein, Total 7.6 g/dL (6.4-8.2)
[2022-06-25] MEDS ORDERED: NA CHLORIDE 0.9% 1,000 ML ONE (01:37)
[2022-06-25] MEDS ORDERED: FAMOTIDINE 20 MG/2 ML VIAL IV ONE (01:37)
[2022-06-25] MEDS ORDERED: MORPHINE 4 MG/ML SYR ONE ×2 (01:37→04:12)
[2022-06-25] MEDS ORDERED: ONDANSETRON 4 MG/2 ML VIAL ONE (01:37)
[2022-06-25 02:19] LABS: Urine Blood Trace-intact (Negative); Urine Glucose Negative (Negative); Urine Protein Negative (Negative); Urine pH 5.5 (5.0-7.0)
--- NOTE | 2022-06-25 04:57 | EDPHYS ---
Physician Documentation [facility] Name: Janeth Hassan Age: 36 yrs Sex: Female : 1985 Arrival Date: 06/24/2022 Time: 23:31 Bed 8 Private MD: ED Physician Oh Jensen HPI: 06/25 03:12 This 36 yrs old Female presents to ER via Ambulatory with complaints of Bloody regina Stools, Mucos-like stools. 03:12 The patient presents with abdominal pain in the upper abdomen, in the lower abdomen, regina abdominal distention in the upper abdomen, in the lower abdomen. Onset: The symptoms/episode began/occurred 5 day(s) ago. The symptoms do not radiate. Associated signs and symptoms: none. The symptoms are described as crampy. Severity of pain: At its worst the pain was mild moderate in the emergency department the pain is unchanged. The patient has not experienced similar symptoms in the past. Historical: - Allergies: 01:43 No Known Allergies; jb4 - Home Meds: :43 None [Active]; jb4 - PMHx: :43 Anxiety; Depression; jb4 - PSHx: 01:43 None; jb4 - Immunization history:: Adult Immunizations up to date. - Social history:: Smoking status: Patient denies any tobacco usage or history of. - Family history:: not pertinent. ROS: 03:12 Constitutional: Negative for fever, chills, and weight loss, Eyes: Negative for injury, regina pain, redness, and discharge, ENT: Negative for injury, pain, and discharge, Neck: Negative for injury, pain, and swelling, Cardiovascular: Negative for chest pain, palpitations, and edema, Respiratory: Negative for shortness of breath, cough, wheezing, and pleuritic chest pain, Back: Negative for injury and pain, : Negative for injury, bleeding, discharge, and swelling, MS/Extremity: Negative for injury and deformity, Skin: Negative for injury, rash, and discoloration, Neuro: Negative for headache, weakness, numbness, tingling, and seizure, Psych: Negative for depression, anxiety, suicide ideation, homicidal ideation, and hallucinations, Allergy/Immunology: Negative for hives, rash, and allergies, Endocrine: Negative for neck swelling, polydipsia, polyuria, polyphagia, and marked weight changes, Hematologic/Lymphatic: Negative for swollen nodes, abnormal bleeding, and unusual bruising. 03:12 Abdomen/GI: Positive for abdominal pain, abdominal cramps, rectal bleeding. Exam: 03:12 Constitutional: This is a well developed, well nourished patient who is awake, alert, regina and in no acute distress. Head/Face: Normocephalic, atraumatic. Eyes: Pupils equal round and reactive to light, extra-ocular motions intact. Lids and lashes normal. Conjunctiva and sclera are non-icteric and not injected. Cornea within normal limits. Periorbital areas with no swelling, redness, or edema. ENT: Nares patent. No nasal discharge, no septal abnormalities noted. Tympanic membranes are normal and external auditory canals are clear. Oropharynx with no redness, swelling, or masses, exudates, or evidence of obstruction, uvula midline. Mucous membranes moist. Neck: Trachea midline, no thyromegaly or masses palpated, and no cervical lymphadenopathy. Supple, full range of motion without nuchal rigidity, or vertebral point tenderness. No Meningismus. Chest/axilla: Normal chest wall appearance and motion. Nontender with no deformity. No lesions are appreciated. Cardiovascular: Regular rate and rhythm with a normal S1 and S2. No gallops, murmurs, or rubs. Normal PMI, no JVD. No pulse deficits. Respiratory: Lungs have equal breath sounds bilaterally, clear to auscultation and percussion. No rales, rhonchi or wheezes noted. No increased work of breathing, no retractions or nasal flaring. Back: No spinal tenderness. No costovertebral tenderness. Full range of motion. Skin: Warm, dry with normal turgor. Normal color with no rashes, no lesions, and no evidence of cellulitis. MS/ Extremity: Pulses equal, no cyanosis. Neurovascular intact. Full, normal range of motion. Neuro: Awake and alert, GCS 15, oriented to person, place, time, and situation. Cranial nerves II-XII grossly intact. Motor strength 5/5 in all extremities. Sensory grossly intact. Cerebellar exam normal. Normal gait. Psych: Awake, alert, with orientation to person, place and time. Behavior, mood, and affect are within normal limits. 03:12 Abdomen/GI: Inspection: abdomen appears normal, Bowel sounds: normal, Palpation: mild abdominal tenderness, in all quadrants, Liver: no appreciated palpable abnormalities, Hernia: not appreciated. Vital Signs: 01:07 BP 118 / 81; Pulse 55; Resp 16; Temp 97.5(TE); Pulse Ox 100% on R/A; Weight 65.77 kg jb4 (R); Height 4 ft. 11 in. (149.86 cm) (R); Pain 10/10; 01:07 Body Mass Index 29.29 (65.77 kg, 149.86 cm) jb4 MDM: 00:07 Patient medically screened. [facility] 03:14 Differential diagnosis: Cholelithiasis, gastritis, GI Bleed, Mesenteric ischemia or regina infarction, non-specific abd pain, pancreatitis, Peptic Ulcer Disease, Pyelonephritis, urinary tract infection. Data reviewed: vital signs, nurses notes, lab test result(s), radiologic studies, CT scan. Data interpreted: threat monitoring analyst: rate is 55 beats/min, rhythm is regular, Pulse oximetry: on room air is 100 %. Test interpretation: by ED physician or midlevel provider: ECG. Counseling: I had a detailed discussion with the patient and/or guardian regarding: the historical points, exam findings, and any diagnostic results supporting the discharge/admit diagnosis, radiology results, the need for outpatient follow up, for definitive care, a family practitioner, a data base design analyst. 06/25 00:29 Order name: CBC with Diff; Complete Time: 02:54 [facility] 06/25 00:29 Order name: CMP; Complete Time: 02:54 [facility] 06/25 00:29 Order name: Lipase; Complete Time: 02:54 [facility] 06/25 00:29 Order name: CT Abd/Pelvis - PO and IV Contrast regina 06/25 02:19 Order name: Urine Dipstick-Ancillary; Complete Time: 02:54 [facility] 06/25 03:13 Order name: Urine --Ancillary (enter results) ds4 06/25 00:29 Order name: IV Saline Lock; Complete Time: 00:46 regina 06/25 00:29 Order name: Labs collected and sent; Complete Time: 00:46 regina 06/25 00:29 Order name: Urine Dipstick-Ancillary (obtain specimen); Complete Time: 03:13 regina 06/25 00:29 Order name: Urine Test (obtain specimen); Complete Time: 03:13 regina Administered Medications: 01:39 Drug: NS 0.9% 1000 ml Route: IV; Rate: 1 bolus; Site: right antecubital; vc1 01:39 Drug: Pepcid (famotidine) 20 mg Route: IVP; Site: right antecubital; vc1 01:39 Drug: Zofran (Ondansetron) 4 mg Route: IVP; Site: right antecubital; vc1 01:39 Drug: morphine 4 mg Route: IVP; Infused Over: 4 mins; Site: right antecubital; vc1 04:20 Drug: morphine 4 mg Route: IVP; Infused Over: 4 mins; Site: right antecubital; jb4 05:22 Drug: Cipro (ciprofloxacin) 500 mg Route: PO; vc1 05:34 Follow up: Response: Medication administered at discharge. vc1 05:22 Drug: Flagyl (metroNIDAZOLE) 500 mg Route: PO; vc1 05:34 Follow up: Response: Medication administered at discharge. vc1 Disposition Summary: 06/25/22 04:56 Discharge Ordered Location: Home regina Problem: new regina Symptoms: have improved regina Condition: Stable regina Diagnosis - Abdominal pain, Generalized regina - Diverticulosis of large intestine without perforation or abscess without bleeding regina - Left sided colitis without complications - mild proctitis regina Followup: regina - With: Private Physician - When: 2 - 3 days - Reason: Recheck today's complaints, Continuance of care, Re-evaluation by your physician Followup: regina - With: - When: 2 - 3 days - Reason: Recheck today's complaints, Continuance of care, Re-evaluation by your physician Discharge Instructions: - Discharge Summary Sheet regina - Abdominal Pain, Adult regina - Abdominal Pain, Adult, [id number] regina - Proctitis regina - Colitis regina Forms: - Medication Reconciliation Form regina - Thank You Letter regina - Antibiotic Education regina - Prescription Opioid Use regina Prescriptions: - Flagyl 500 mg Oral Tablet - take 1 tablet by ORAL route every 8 hours for 7 days; 21 tablet; Refills: 0, [facility] Product Selection Permitted - Pepcid 20 mg Oral Tablet - take 1 tablet by ORAL route every 12 hours for 10 days; 20 tablet; Refills: 0, [facility] Product Selection Permitted - Zofran 4 mg Oral Tablet - take 1 tablet by ORAL route every 12 hours As needed; 20 tablet; Refills: 0, [facility] Product Selection Permitted - dicyclomine 20 mg Oral Tablet - take 1 tablet by ORAL route 4 times per day; 28 tablet; Refills: 0, Product [facility] Selection Permitted - Cipro 500 mg Oral Tablet - take 1 tablet by ORAL route every 12 hours for 7 days; 14 tablet; Refills: 0, [facility] Product Selection Permitted Signatures: Dispatcher [employer] Oh Mcnair MD MD cha Bryson, James RN RN jb4 Madeline Colby RN RN vc1 Corrections: (The following items were deleted from the chart) 01:44 01:43 Immunization history: Adult Immunizations up to date, jadon jb4
--- NOTE | 2022-06-25 04:57 | ER ---
Nurse's Notes [facility] Name: Janeth Hassan Age: 36 yrs Sex: Female : 1985 Arrival Date: 06/24/2022 Time: 23:31 Bed 8 Private MD: Diagnosis: Abdominal pain, Generalized;Diverticulosis of large intestine without perforation or abscess without bleeding;Left sided colitis without complications-mild proctitis Presentation: 06/24 23:45 Chief complaint: Patient states: I have been having bloody streaked stools with mucus. jb4 It is much worse recently. I have a family history of Crohns disease, IBS, and ulcerative colitis. 23:45 Coronavirus screen: At this time, the client does not indicate any symptoms associated jb4 with coronavirus-19. Ebola Screen: No symptoms or risks identified at this time. Initial Sepsis Screen: Does the patient meet any 2 criteria? No. Patient's initial sepsis screen is negative. Does the patient have a suspected source of infection? No. Patient's initial sepsis screen is negative. Risk Assessment: Do you want to hurt yourself or someone else? Patient reports no desire to harm self or others. Onset of symptoms was June 25, 2022. Transition of care: patient was not received from another setting of care. 23:45 Method Of Arrival: Ambulatory jb4 23:45 Acuity: ARAMIS 3 jb4 Historical: - Allergies: 06/25 01:43 No Known Allergies; jb4 - Home Meds: 01:43 None [Active]; jb4 - PMHx: 01:43 Anxiety; Depression; jb4 - PSHx: 01:43 None; jb4 - Immunization history:: Adult Immunizations up to date. - Social history:: Smoking status: Patient denies any tobacco usage or history of. - Family history:: not pertinent. Screenin/16 23:45 Abuse screen: Denies threats or abuse. Nutritional screening: No deficits noted. jb4 Tuberculosis screening: No symptoms or risk factors identified. Fall Risk None identified. Assessment: 06/25 01:00 General: Appears in no apparent distress. uncomfortable, Behavior is calm, cooperative, jb4 appropriate for age. Pain: Complains of pain in abdomen Pain does not radiate. Pain currently is 10 out of 10 on a pain scale. Neuro: Level of Consciousness is awake, alert, obeys commands, Oriented to person, place, time, situation. Cardiovascular: Patient's skin is warm and dry. Respiratory: Airway is compromised Respiratory effort is even, unlabored, Respiratory pattern is regular, symmetrical. GI: Abdomen is flat, non-distended, Reports Bloody streak stools and mucus. : No signs and/or symptoms were reported regarding the genitourinary system. EENT: No signs and/or symptoms were reported regarding the EENT system. Derm: Skin is intact, Skin is pink, warm \T\ dry. Musculoskeletal: Circulation, motion, and sensation intact. Range of motion:. 02:28 Reassessment: Patient appears in no apparent distress at this time. Patient and/or jb4 family updated on plan of care and expected duration. Pain level reassessed. Patient is alert, oriented x 3, equal unlabored respirations, skin warm/dry/pink. 05:34 Reassessment: Patient denies pain at this time. Patient states feeling better. Patient vc1 states symptoms have improved. Vital Signs: 01:07 BP 118 / 81; Pulse 55; Resp 16; Temp 97.5(TE); Pulse Ox 100% on R/A; Weight 65.77 kg jb4 (R); Height 4 ft. 11 in. (149.86 cm) (R); Pain 10/10; 01:07 Body Mass Index 29.29 (65.77 kg, 149.86 cm) jb4 ED Course: 06/24 23:31 Patient arrived in ED. bp1 23:45 Arm band placed on right wrist. jb4 23:45 Patient has correct armband on for positive identification. Placed in gown. Bed in low jb4 position. Call light in reach. Side rails up X 1. Client placed on continuous cardiac and pulse oximetry monitoring. NIBP monitoring applied. 23:54 Vaughn Spivey, CHRISTINE is Primary Nurse. ke1 06/25 00:07 Oh Jensen MD is Attending Physician. [facility] 00:43 Initial lab(s) drawn, by nj, sent to lab. Inserted saline lock: 18 gauge in right Blood jb4 collected. 01:42 Triage completed. jb4 03:42 CT Abd/Pelvis - PO and IV Contrast In Process Unspecified. EDMS 04:54 Evi Johnson MD is Referral Physician. [facility] 05:34 No provider procedures requiring assistance completed. IV discontinued. vc1 Administered Medications: 01:39 Drug: NS 0.9% 1000 ml Route: IV; Rate: 1 bolus; Site: right antecubital; vc1 01:39 Drug: Pepcid (famotidine) 20 mg Route: IVP; Site: right antecubital; vc1 01:39 Drug: Zofran (Ondansetron) 4 mg Route: IVP; Site: right antecubital; vc1 01:39 Drug: morphine 4 mg Route: IVP; Infused Over: 4 mins; Site: right antecubital; vc1 04:20 Drug: morphine 4 mg Route: IVP; Infused Over: 4 mins; Site: right antecubital; jb4 05:22 Drug: Cipro (ciprofloxacin) 500 mg Route: PO; vc1 05:34 Follow up: Response: Medication administered at discharge. vc1 05:22 Drug: Flagyl (metroNIDAZOLE) 500 mg Route: PO; vc1 05:34 Follow up: Response: Medication administered at discharge. vc1 Medication: 01:00 VIS not applicable for this client. jb4 Outcome: 04:56 Discharge ordered by . regina 05:35 Discharged to home ambulatory. vc1 05:35 Condition: good 05:35 Discharge instructions given to patient. 05:36 Patient left the ED. vc1 Signatures: Dispatcher [employer] EDOh Vega MD MD cha Bryson, James RN RN jb4 Puja Greenberg Vanessa, RN RN vc1 Vaughn Spivey RN RN ke1 Corrections: (The following items were deleted from the chart) 01:43 01:43 Arm band placed on right wrist. jb4 jb4 01:44 01:43 Immunization history: Adult Immunizations up to date, jb4 jb4
[2022-06-25] MEDS ORDERED: CIPROFLOXACIN HCL 500 MG TAB ONE (05:31)
[2022-06-25] MEDS ORDERED: metroNIDAZOLE 500 MG TABLET ONE (05:31)
--- NOTE | 2022-06-25 22:07 | RAD REPORT ---
EXAM DESCRIPTION: CT - Abdomen Pelvis W Contrast - 06/25/2022 3:32 am COMPARISON: None. CLINICAL HISTORY: [facility] Abdominal pain, acute, nonlocalized TECHNIQUE: CT of the abdomen and pelvis was acquired with IV contrast material. Coronal and sagitt al reconstructions were obtained. Automated exposure control was utilized on this examination as a dose lowering technique. FINDINGS: Lung bases: Clear. Liver: Normal. Gallbladder and biliary: Normal gallbladder. Unremarkable biliary tree. Pancreas: Normal. Spleen: Normal. Adrenal glands: Normal adrenal glands. Kidneys: Normal kidneys Stomach and Small Bowel: The stomach and small bowel are normal. Urinary bladder: Normal. Uterus and Adnexa: Normal. Colon and Appendix: Distal rectal wall thickening. Mild colonic diverticulosis. No evidence of append icitis. Retroperitoneum and lymph nodes: Normal. Vascular: Unremarkable. Peritoneal cavity: No ascites or free air. Musculoskeletal and soft tissues: Soft tissues are unremarkable. No aggressive bone lesions. No com pression fracture. ABDOMEN/PELVIS IMPRESSION: 1. Mild proctitis. 2. Mild colonic diverticulosis. Electronically signed by: Ugo Odonnell MD 06/25/2022 4:49 AM CDT Due to temporary technical issues with the PACS/Fluency reporting system, reports are being signed by the in house radiologists without review as a courtesy to insure prompt reporting. The interpreting radiologist is fully responsible for the content of the report.
[2022-06-26 18:04] VITALS: BP 118/81; TEMP 97.5; O2SAT 100
--- NOTE | 2022-06-29 06:44 | EKG ---
Test Date: 2022-06-25 Test Time: 01:15:27 Industrial Psychologist: ELIJAH MEASUREMENT RESULTS: Intervals: Rate: 65 NM: 130 QRSD: 94 QT: 398 QTc: 413 [place]: P: 14 NM: 130 QRS: 2 T: 32 INTERPRETIVE STATEMENTS: Normal sinus rhythm Normal ECG Compared to ECG 03/06/2012 15:02:56 T-wave abnormality no longer present Electronically Signed On 06-29-22 06:32:58 CDT by Noam Dorsey
== END 2022-06-25 05:36 | disposition home or self-care (01) ==
LOC: ER 23:28
DX: R10.84 Generalized abdominal pain (principal); K51.50 Left sided colitis without complications; K62.89 Other specified diseases of anus and rectum; K57.30 Diverticulosis of large intestine without perforation or abscess without bleeding
CPT/HCPCS: 36415; 74177; 80053; 81003; 81025; 83690; 85025; 93005; 96374; 96375; 99284; J2405; J7030; Q9967

== ENCOUNTER 2025-07-01 23:43 | Emergency (ER) | payer SELFPAY ==
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
[2025-07-02] MEDS ORDERED: KETOROLAC 30 MG/ML INJ ONE (00:19)
[2025-07-02] MEDS ORDERED: DIPHENHYDRAMINE 25 MG TAB/CAP ONE (00:20)
[2025-07-02] MEDS ORDERED: HYDROCODONE/APAP 5/325 MG TAB ONE (00:20)
[2025-07-02] MEDS ORDERED: CEPHALEXIN 250 MG CAP ONE (00:20)
[2025-07-02] MEDS ORDERED: ONDANSETRON 4 MG (ODT) TAB ONE (00:21)
--- NOTE | 2025-07-02 00:38 | ER ---
Nurse's Notes [facility] Name: Janeth Hassan Age: 39 yrs Sex: Female : 1985 Arrival Date: 07/01/2025 Time: 23:43 Bed 8 Private MD: Diagnosis: Toxic effect of venom of caterpillars, accidental (unintentional), initial encounter Presentation: 07/02 00:09 Chief complaint: Patient states: stung by asp about an hour ago and the pain is vc1 radiating up arm and to chest. Coronavirus screen: Client denies travel out of the [place] in the last 14 days. At this time, the client does not indicate any symptoms associated with coronavirus-19. Ebola Screen: Patient negative for fever greater than or equal to 101.5 degrees Fahrenheit, and additional compatible Ebola Virus Disease symptoms Patient denies exposure to infectious person. Patient denies travel to an Ebola-affected area in the 21 days before illness onset. No symptoms or risks identified at this time. Initial Sepsis Screen: Does the patient meet any 2 criteria? No. Patient's initial sepsis screen is negative. Does the patient have a suspected source of infection? No. Patient's initial sepsis screen is negative. Risk Assessment: Do you want to hurt yourself or someone else? Patient reports no desire to harm self or others. Onset of symptoms was July 01, 2025 at 23:00. 00:09 Method Of Arrival: Ambulatory vc1 00:09 Acuity: ARAMIS 4 vc1 Triage Assessment: 00:14 Bite description: bite sustained to left arm by asp, animal information: vaccination(s) vc1 is not applicable. General: Appears in no apparent distress. uncomfortable, slender, well groomed, well developed, well nourished, Behavior is calm, cooperative, appropriate for age. Pain: Complains of pain in left arm Pain does not radiate. Pain currently is 9 out of 10 on a pain scale. EENT: No deficits noted. No signs and/or symptoms were reported regarding the EENT system. Neuro: Level of Consciousness is awake, alert, obeys commands, Oriented to person, place, time, situation, Appropriate for age. Cardiovascular: Capillary refill < 3 seconds. Respiratory: Airway is patent Respiratory effort is even, unlabored, Respiratory pattern is regular, symmetrical. GI: No deficits noted. No signs and/or symptoms were reported involving the gastrointestinal system. : No deficits noted. No signs and/or symptoms were reported regarding the genitourinary system. Derm: Skin is intact, is healthy with good turgor, Skin is dry, Skin is normal, Skin temperature is warm. Musculoskeletal: Circulation, motion, and sensation intact. Range of motion: intact in all extremities. 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 - Infectious Disease History:: Denies. - Social history:: Smoking status: Patient denies any tobacco usage or history of. Screenin:[address] [facility] ED Fall Risk Assessment (Adult) History of falling in the last 3 months, vc1 including since admission No falls in past 3 months (0 pts) Confusion or Disorientation No (0 pts) Intoxicated or Sedated No (0 pts) Impaired Gait No (0 pts) Mobility Assist Device Used No (0 pt) Altered Elimination No (0 pt) Score/Fall Risk Level 0 - 2 = Low Risk Oriented to surroundings, Maintained a safe environment, Educated pt \T\ family on fall prevention, incl call for assistance when getting out of bed, Assessed \T\ reinforced patient's understanding of fall precautions, Hourly rounding (assess needs \T\ fall precautionary measures) done. Abuse screen: Denies threats or abuse. Nutritional screening: No deficits noted. Tuberculosis screening: No symptoms or risk factors identified. Assessment: 00:49 Reassessment: Patient appears in no apparent distress at this time. Patient and/or jb4 family updated on plan of care and expected duration. Pain level reassessed. Patient is alert, oriented x 3, equal unlabored respirations, skin warm/dry/pink. Vital Signs: 00:09 BP 136 / 97; Pulse 73; Resp 16; Temp 97.2; Pulse Ox 100% ; Weight 61.23 kg; Height 4 vc1 ft. 11 in. ; Pain 06/18; 00:09 Body Mass Index 27.27 (61.23 kg, 149.86 cm) vc1 00:09 Pain Scale: Adult vc1 ED Course: 07/01 23:47 Patient arrived in ED. gm2 23:51 Ed Faust FNP-C [facility]. dr5 23:51 Justin Crystal MD is Attending Physician. dr5 07/02 00:11 Triage completed. vc1 00:12 Arm band placed on right wrist. vc1 00:13 Patient has correct armband on for positive identification. Bed in low position. vc1 Provided Education on: Plan of care. 00:49 No provider procedures requiring assistance completed. Patient did not have IV access jb4 during this emergency room visit. Administered Medications: 00:37 Drug: HYDROcodone-acetaminophen PO 5 mg-325 mg 2 tabs PO once Route: PO; jb4 00:48 Follow up: Response: No adverse reaction jb4 00:37 Drug: diphenhydrAMINE PO 25 mg PO once Route: PO; jb4 00:48 Follow up: Response: No adverse reaction jb4 00:37 Drug: Ketorolac IM 30 mg IM once Route: IM; Site: left deltoid; jb4 00:48 Follow up: Response: No adverse reaction jb4 00:37 Drug: Cephalexin PO 500 mg PO once Route: PO; jb4 00:49 Follow up: Response: No adverse reaction jb4 00:38 Drug: Ondansetron PO 4 mg PO once Route: PO; jb4 00:49 Follow up: Response: No adverse reaction jb4 Medication: 00:14 VIS not applicable for this client. vc1 Outcome: 00:37 Discharge ordered by . dr5 00:49 Discharged to home ambulatory, jb4 00:49 Condition: stable 00:49 Discharge instructions given to patient, Instructed on discharge instructions, follow up and referral plans. medication usage, Demonstrated understanding of instructions, follow-up care, medications, Prescriptions given X 3, 00:49 Patient left the ED. jb4 Signatures: Juan Karimi RN RN jb4 Madeline Colby RN RN vc1 Karey Osuna gm2 Ed Faust FNP-C CURTAIN CUTTER HAND-Cdr5
--- NOTE | 2025-07-02 00:38 | EDPHYS ---
Physician Documentation [facility] Name: Janeth Hassan Age: 39 yrs Sex: Female : 1985 Arrival Date: 07/01/2025 Time: 23:43 Bed 8 Private MD: ED Physician Justin Crystal HPI: 07/02 00:17 This 39 yrs old Female presents to ER via Ambulatory with complaints of Arm dr5 Pain, Insect Bite. 00:17 The complaints affect the dorsal aspect of left forearm. Onset: The symptoms/episode dr5 began/occurred 1.5 hour(s) ago. Patient is a 39-year-old female with history of anxiety and depression coming in with caterpillar/asp that landed on left arm causing burning. Patient reports that she took tape and attempted to get hairs out of skin as well as took shower with mild relief.. 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 - Infectious Disease History:: Denies. - Social history:: Smoking status: Patient denies any tobacco usage or history of. ROS: 00:17 Constitutional: as per hpi dr5 Exam: 00:17 Constitutional: This is a well developed, well nourished patient who is awake, alert, dr5 and in no acute distress. Head/Face: Normocephalic, atraumatic. Eyes: Pupils equal round and reactive to light, extra-ocular motions intact. Lids and lashes normal. Conjunctiva and sclera are non-icteric and not injected. Cornea within normal limits. Periorbital areas with no swelling, redness, or edema. ENT: Nares patent. No nasal discharge, no septal abnormalities noted. Tympanic membranes are normal and external auditory canals are clear. Oropharynx with no redness, swelling, or masses, exudates, or evidence of obstruction, uvula midline. Mucous membranes moist. Neck: Trachea midline, no thyromegaly or masses palpated, and no cervical lymphadenopathy. Supple, full range of motion without nuchal rigidity, or vertebral point tenderness. No Meningismus. Chest/axilla: Normal chest wall appearance and motion. Nontender with no deformity. No lesions are appreciated. Cardiovascular: Regular rate and rhythm with a normal S1 and S2. Normal PMI, no JVD. No pulse deficits. Respiratory: Lungs have equal breath sounds bilaterally, clear to auscultation. No rales, rhonchi or wheezes noted. No increased work of breathing, no retractions or nasal flaring. Back: No spinal tenderness. No costovertebral tenderness. Full range of motion. Skin: Warm, dry with normal turgor. Normal color with no rashes, no lesions, and no evidence of cellulitis. Mild redness noted to left anterior forearm that is not spreading. No fluctuance noted. Small area where asp landed has redness. Mild tenderness to palpation. MS/ Extremity: Pulses equal, no cyanosis. Neurovascular intact. Full, normal range of motion. Neuro: Awake and alert, GCS 15, oriented to person, place, time, and situation. Cranial nerves II-XII grossly intact. Motor strength 5/5 in all extremities. Sensory grossly intact. Cerebellar exam normal. Normal gait. Vital Signs: 00:09 BP 136 / 97; Pulse 73; Resp 16; Temp 97.2; Pulse Ox 100% ; Weight 61.23 kg; Height 4 vc1 ft. 11 in. ; Pain 9/10; 00:09 Body Mass Index 27.27 (61.23 kg, 149.86 cm) vc1 00:09 Pain Scale: Adult vc1 MDM: 07/01 23:52 Medical Screening Exam initiated dr5 07/02 00:17 Differential diagnosis: open fracture, contusion, abrasion. Data reviewed: vital signs, dr5 nurses notes. Consideration of Admission/Observation Escalation of care including admission/observation considered. Escalation considered patient found to have fever or streaking/rapidly progressing redness.. I considered the following discharge prescriptions or medication management in the emergency department I discussed and recommended Over The Counter medications, Medications were administered in the Emergency Department. See MAR. Test considered but Not performed: X-ray: X-ray considered but unlikely to have osteomyelitis or fracture. Care significantly affected by the following chronic conditions: Anxiety, depression. Care significantly affected by the following Social Determinants of Health: Poor access to healthcare and/or lack of insurance, Poor access to transportation, Problems related to employment. Counseling: I had a detailed discussion with the patient and/or guardian regarding the historical points, exam findings, and any diagnostic results supporting the discharge/admit diagnosis, the presence of at least one elevated blood pressure reading (>120/80) during this emergency department visit, the need for outpatient follow up, for definitive care, a family practitioner, to return to the emergency department if symptoms worsen or persist or if there are any questions or concerns that arise at home. Medication response: Zofran, Toradol, Keflex, Benadryl, [place]. Response to treatment: the patient's symptoms have markedly improved after treatment. Special discussion: I discussed with the patient/guardian in detail that at this point there is no indication for admission to the hospital. It is understood, however, that if the symptoms persist or worsen the patient needs to return immediately for re-evaluation. Based on the history and exam findings, there is no indication for further emergent testing or inpatient evaluation. I discussed with the patient/guardian the need to see the primary care provider for further evaluation of the symptoms. ED course: Will have patient follow-up with primary care doctor. Will cover possible developing infection with cephalexin. Alternate Tylenol Motrin as needed for pain. Recommended in cetirizine and Benadryl for itching. All questions answered. Strict ER precautions given. 07/02 00:13 Order name: Ice pack; Complete Time: 00:48 dr5 Administered Medications: 00:37 Drug: HYDROcodone-acetaminophen PO 5 mg-325 mg 2 tabs PO once Route: PO; jb4 00:48 Follow up: Response: No adverse reaction jb4 00:37 Drug: diphenhydrAMINE PO 25 mg PO once Route: PO; jb4 00:48 Follow up: Response: No adverse reaction jb4 00:37 Drug: Ketorolac IM 30 mg IM once Route: IM; Site: left deltoid; jb4 00:48 Follow up: Response: No adverse reaction jb4 00:37 Drug: Cephalexin PO 500 mg PO once Route: PO; jb4 00:49 Follow up: Response: No adverse reaction jb4 00:38 Drug: Ondansetron PO 4 mg PO once Route: PO; jb4 00:49 Follow up: Response: No adverse reaction jb4 Disposition Summary: 07/02/25 00:37 Discharge Ordered Notes: Location: Home dr5 Condition: Stable dr5 Diagnosis - Toxic effect of venom of caterpillars, accidental (unintentional), initial encounterdr5 Followup: dr5 - With: Emergency Department - When: As needed - Reason: Worsening of condition Followup: dr5 - With: Private Physician - When: 1 - 2 days - Reason: Recheck today's complaints, Continuance of care, Re-evaluation by your physician Discharge Instructions: - Discharge Summary Sheet dr5 - Insect Bite, Adult dr5 Forms: - Medication Reconciliation Form dr5 - Antibiotic Education dr5 - Patient Portal Instructions dr5 - Leadership Thank You Letter dr5 Prescriptions: - Cephalexin 500 mg Oral Capsule - take 1 capsule ORAL route every 12 hours for 10 days; 20 capsule; Refills: 0, dr5 Product Selection Permitted - Triamcinolone Acetonide 0.5 % Topical cream - apply 1 application TOPICAL route 2 times per day As needed; 1 application; dr5 Refills: 0, Product Selection Permitted - Pepcid 20 mg Oral Tablet - take 1 tablet ORAL route once daily for 10 days; 10 tablet; Refills: 0, Product dr5 Selection Permitted Signatures: Juan Karimi, RN RN jb4 Madeline Colby RN RN vc1 Ed Faust, BAG MACHINE SET UP OPERATOR-C BAG MACHINE SET UP OPERATOR-Cdr5
== END 2025-07-02 00:49 | disposition home or self-care (01) ==
LOC: ER 23:43
DX: T63.431A Toxic effect of venom of caterpillars, accidental (unintentional), initial encounter (principal)
CPT/HCPCS: 96372; 99284; J1885; Q0162